=== PATIENT | male | born 1935 | race Caucasian/White ===

== ENCOUNTER 2018-11-26 15:46 | Emergency (ER) | payer MEDICARE, MEDICAID ==
--- NOTE | 2018-11-26 16:14 | Emergency Department Record ---
History of Present Illness - General Chief Complaint: Fall Injury Stated Complaint: 3 DAYS FALL/HEADACHES Time Seen by Provider: 11/26/18 16:06 Source: Patient Mode of Arrival: Uses walker Limitations: No limitations - History of Present Illness Initial Comments: 83 yo male presents after a fall three days ago at his home. He fell back entering his home and hit the back of his head. No LOC. No other injuries or pain. He reports a headache since that time. No dizziness. No syncope. He has been back to his baseline of using a walker at home since the fall. No vision changes. No confusion. No nausea or vomiting. No new joint pains or back pain. No chest pain. He called his PCP today due to the headache since the fall and was sent to the ED. Complaint: Fall Onset/Timin -: Days(s) Fall From: Standing When Fall Occurred: # Days [employer] Fall Witnessed: No Place Fall Occurred: Home Loss of Consciousness: None Prolonged Down Time?: No Symptoms Prior to Fall: None Location: Head Severity: Mild Severity scale (1-10): 3 Quality: Aching Context: Tripped/slipped Associated Symptoms: Denies - [place] Coma Scale Eye Response: (4) Open spontaneously Motor Response: (6) Obeys commands Verbal Response: (5) Oriented Trail Total: 15 - Related Data Allergies Allergy/AdvReac Type Severity Reaction Status Date / Time amoxicillin Allergy RASH Verified 11/26/18 15:56 Penicillins Allergy RASH Verified 11/26/18 15:56 Sulfa (Sulfonamide Allergy NAUSEA AND Verified 11/26/18 15:56 Antibiotics) VOMITING Travel Screening - Travel/Exposure Within Last 30 Days Have you traveled within the last 30 days?: No - Travel/Exposure Within Last Year Have you traveled outside the [place] in the last year?: No - Additonal Travel Details Have you been exposed to anyone with a communicable illness?: No - Travel Symptoms Symptom Screening: None Review of Systems Constitutional: Denies: Chills, Fever, Malaise, Weakness Eyes: Denies: Eye discharge, Eye pain, Photophobia, Vision change ENT: Denies: Congestion, Throat pain Respiratory: Denies: Cough, Dyspnea Cardiovascular: Denies: Chest pain, Palpitations, Syncope Endocrine: Denies: Fatigue, Polydipsia, Polyuria Gastrointestinal: Denies: Abdominal pain, Diarrhea, Nausea, Vomiting Genitourinary: Denies: Dysuria, Frequency, Hematuria Musculoskeletal: Denies: Arthralgia, Back pain, Joint swelling, Myalgia, Neck pain Skin: Denies: Bruising, Change in color, Rash Neurological: Reports: Headache. Denies: Numbness, Vertigo, Weakness Psychiatric: Denies: Anxiety Hematological/Lymphatic: Denies: Easy bleeding, Easy bruising Past Medical History - SOCIAL HISTORY Smoking Status: Never smoker Alcohol Use: None Drug Use: None - RESPIRATORY Hx Respiratory Disorders: No - CARDIOVASCULAR Hx Cardio Disorders: Yes Hx Hypertension: Yes - NEURO Hx Neuro Disorders: No - GI Hx GI Disorders: No - Hx Genitourinary Disorders: Yes Hx Prostate Problems: Yes - ENDOCRINE Hx Endocrine Disorders: Yes Hx Diabetes: Yes Hx Thyroid Disease: Yes - MUSCULOSKELETAL Hx Musculoskeletal Disorders: Yes Hx Arthritis: Yes - PSYCH Hx Psych Problems: No - HEMATOLOGY/ONCOLOGY Hx Hematology/Oncology Disorders: No Family Medical History Any Significant Family History?: No Physical Exam - General General Appearance: Alert, Oriented x3, Cooperative, No acute distress Limitations: No limitations - Head Head exam: Atraumatic, Normocephalic, Normal inspection Head exam detail: Other. negative: Abrasion, Contusion, Hematoma, Laceration - Eye Eye exam: Normal appearance, PERRL, EOMI. negative: Conjunctival injection, Scleral icterus - ENT ENT exam: Normal exam, Mucous membranes moist, Normal orophraynx Ear exam: Normal external inspection Nasal Exam: Normal inspection Mouth exam: Normal external inspection Teeth exam: Normal inspection Throat exam: Normal inspection - Neck Neck exam: Normal inspection, Full ROM. negative: Tenderness - Respiratory Respiratory exam: Normal lung sounds bilaterally, Other (No pain with deep inspiration). negative: Accessory muscle use, Chest wall tenderness, Decreased breath sounds, Prolonged expiratory, Respiratory distress, Rhonchi, Stridor, Wheezes - Cardiovascular Cardiovascular Exam: Regular rate, Normal rhythm, Normal heart sounds - GI/Abdominal GI/Abdominal exam: Soft. negative: Distended, Guarding, Rebound, Rigid, Tenderness - Rectal Rectal exam: Deferred - exam: Deferred - Extremities Extremities exam: Normal inspection, Full ROM, Pedal edema (chronic edema per the patient). negative: Tenderness Image of Full Body: 1 - 4cm bruise, non tender 2 - few scattered bruises, non tender, clear lungs - Back Back exam: Reports: Normal inspection. Denies: CVA tenderness (R), CVA tenderness (L) - Neurological Neurological exam: Alert, Oriented X3 - Psychiatric Psychiatric exam: Normal affect, Normal mood. negative: Agitated, Anxious - Skin Skin exam: Dry, Intact, Normal color, Warm Course Vital Signs 11/26/18 16:00 Temperature 99.1 F Pulse Rate 88 Respiratory 20 Rate Blood Pressure 174/83 Pulse Ox 97 - Reevaluation(s) Reevaluation #1: 83 yo male, well appearing with persistent headache without other symptoms since a fall 3 days ago. Head and Cervical CT ordered 11/26/18 16:20 The patient is doing well and eager for DC. 11/26/18 16:57 The HCT is negative for acute process or injury. Ventriculomegaly noted slightly progressed since the previous in 2011 likely progression or atrophy. 11/26/18 17:[address] scan was negative for any acute process. Multi level degen erative changes noted. The results were discussed with the patient. We discussed close follow up with the PCP for a recheck of his symptoms after the fall. Disposition Disposition: Discharge Clinical Impression: Headache Qualifiers: Headache type: unspecified Headache chronicity pattern: unspecified pattern Intractability: not intractable Qualified Code(s): R51 - Headache Head contusion Qualifiers: Encounter type: initial encounter Contusion of head detail: unspecified part of head Qualified Code(s): S00.93XA - Contusion of unspecified part of head, initial encounter Disposition: Home, Self-Care Condition: (1) Good Instructions: Fall Prevention for Older Adults (ED) Additional Instructions: Call your doctor for the next available follow up appointment to recheck your headache Review this ER visit and the tests performed with your family doctor Return to the ER for a recheck if worse, any new concerns or questions Take Tylenol as needed for mild headache pain Forms: Patient Portal Access Time of Disposition: 16:59 Quality - Quality Measures Quality Measures: N/A, Blunt Head Trauma (>2yr) - Erika Coma Scale Eye Response: (4) Open spontaneously Motor Response: (6) Obeys commands Verbal Response: (5) Oriented Trail Total: 15 - Blunt Head Trauma - Adult Quality Measure: Measure #415: Utilization of CT for Minor Blunt Head Trauma ICD10 Codes Entered: Yes Was CT ordered: Yes Does Patient Have Any of the Following: Taking Antiplatelet Med Trail Score: [address] for Minor Blunt Head Trauma: Patient Excluded [G9531] Additional Inclusion Criteria: More than 24hrs (OR) GCS not 15 (OR) CT not ordered. - Blood Pressure Screening Does Patient Have Any of the Following: Active Dx of HTN Blood Pressure Classification: Pre-Hypertensive BP Reading Systolic Measurement: 174 Diastolic Measurement: 83 Screening for High Blood Pressure: Patient Exclusion, Hx of HTN [G9744]
--- NOTE | 2018-11-28 10:24 | CT SCAN REPORT ---
EXAM: CT OF THE BRAIN WITHOUT CONTRAST HISTORY: FALL THREE NIGHTS AGO HITTING BACK OF HEAD. DULL HEADACHE. TECHNIQUE: Routine noncontrast CT examination of the brain was obtained. Comparison: CT of the brain without contrast dated 11/09/11. FINDINGS: There is mild to moderate dilatation of the ventricles, slightly more pronounced since 2011. There is dilatation of the subarachnoid spaces consistent with atrophy. Moderate diffuse periventricular and subcortical white matter lucencies are scattered in each cerebral hemisphere symmetrically. These are unchanged or mildly worsened in the interval. They are nonspecific, but likely areas of chronic microvascular ischemia. No definite new area of abnormally increased or decreased attenuation is noted throughout the brain substance. No abnormal extraaxial fluid collection is seen. No skull fracture is identified. The visualized paranasal sinuses and mastoid air cells are clear. The orbits as visualized are unremarkable. IMPRESSION: 1. NO CT EVIDENCE OF ACUTE MAJOR VESSEL INFARCT, INTRACRANIAL HEMORRHAGE, MASS, NOR SKULL FRACTURE. 2. GENERALIZED ATROPHY WITH VENTRICULOMEGALY. THE VENTRICULOMEGALY APPEARS MILDLY MORE PRONOUNCED COMPARED TO THE PRIOR EXAMINATION LIKELY RELATING TO PROGRESSION OF ATROPHY WITH NORMAL PRESSURE HYDROCEPHALUS LESS LIKELY. 3. DIFFUSE WHITE MATTER LUCENCIES SCATTERED IN EACH CEREBRAL HEMISPHERE SYMMETRICALLY CONSISTENT WITH MICROVASCULAR ISCHEMIA. JOB NUMBER: [id number] [facility]
--- NOTE | 2018-11-28 10:43 | CT SCAN REPORT ---
EXAM: CT OF THE CERVICAL SPINE WITHOUT CONTRAST HISTORY: FALL THREE NIGHTS AGO HITTING BACK OF HEAD. DULL HEADACHE SINCE. TECHNIQUE: Thin collimation helical CT examination of the cervical spine was performed without intravenous contrast. Coronal and sagittal reformatted images are generated and reviewed. Comparison: No prior imaging of the cervical spine available for comparison. Same day noncontrast CT of the brain. FINDINGS: Diffuse osteopenia mildly limits evaluation. There is straightening of the normal cervical lordosis likely due to positioning or muscle spasm. There is minimal anterolisthesis of C2 on C3 likely relating to facet arthropathy which is advanced on the left. The vertebral bodies are otherwise normal in alignment and height. No convincing acute fracture, destructive bone lesion or prevertebral soft tissue swelling. There are moderate hypertrophic degenerative changes of the atlantodental joint. There is near complete obliteration of the C3-C4 disk space with fusion of C3 and C4 vertebral bodies and right facet joint. Mild degenerative disk/degenerative end plate changes are scattered throughout the remainder of the cervical spine. No gross osseous cervical spinal stenosis is seen. Multilevel bilateral facet arthropathy is present most pronounced at the upper levels, severe on the left at the C2-C3 level. Multilevel bilateral neural foraminal narrowing is present most pronounced at the upper levels due to facet arthropathy. No cervical mass nor adenopathy is seen. IMPRESSION: 1. DIFFUSE OSTEOPENIA LIMITS EVALUATION. 2. NO ACUTE FRACTURE, SUSPICIOUS SUBLUXATION OR PREVERTEBRAL SOFT TISSUE SWELLING. 3. MULTILEVEL DEGENERATIVE CHANGES, DISCUSSED ABOVE. MINIMAL ANTEROLISTHESIS OF C2 ON C3 SECONDARY TO FACET ARTHROPATHY. JOB NUMBER: [id number] [facility]
== END 2018-11-26 17:36 | disposition home or self-care (01) ==
LOC: ER 15:46
DX: S00.93XA Contusion of unspecified part of head, initial encounter (principal); S20.222A Contusion of left back wall of thorax, initial encounter; S20.221A Contusion of right back wall of thorax, initial encounter; R51 Headache; R60.0 Localized edema; E11.9 Type 2 diabetes mellitus without complications; I10 Essential (primary) hypertension; W01.10XA Fall on same level from slipping, tripping and stumbling with subsequent striking against unspecified object, initial encounter; Y92.009 Unspecified place in unspecified non-institutional (private) residence as the place of occurrence of the external cause
CPT/HCPCS: 70450; 72125; 99283; 99284

== ENCOUNTER 2018-11-30 12:57 | Emergency (ER) | payer MEDICARE, MEDICAID ==
[2018-11-30 13:43] LABS: ABSOLUTE NEUTROPHIL COUNT 4.43; BASO % 0.2 % (0-6); EOS % 1.2 % (0-6); GRAN % 77.5 % (47-80); HEMATOCRIT 40.2 % (42.0-52.0); HEMOGLOBIN 13.1 gm/dl (14.0-18.0); LYMPH % 13.8 % (16-45); MEAN CELL VOLUME 93.7 fl (81-97); MEAN CORPUSCULAR HEMOGLOBIN 30.5 pg (27-33); MEAN CORPUSCULAR HGB CONC 32.6 g/dl (32-36); MEAN PLATELET VOLUME 9.6 fl (7.4-10.4); MONO % 7.3 % (0-9); PLATELET COUNT 158 K/uL (130-400); RED BLOOD COUNT 4.29 M/uL (4.40-5.70); RED CELL DISTRIBUTION WIDTH 14.7 % (11.5-14.5); URINE APPEARANCE CLEAR; URINE BILIRUBIN NEGATIVE (NEGATIVE); URINE BLOOD TRACE-I (NEGATIVE); URINE COLOR YELLOW; URINE GLUCOSE (UA) NEGATIVE (NEGATIVE); URINE KETONE TRACE (NEGATIVE); URINE LEUKOCYTE ESTERASE NEGATIVE (NEGATIVE); URINE NITRITE NEGATIVE (NEGATIVE); URINE UROBILINOGEN 0.2 E.U./dL (0.20 - 1.00); WHITE BLOOD COUNT W/O DIFF 5.7 K/uL (4.2-12.2)
[2018-11-30 13:54] LABS: BLOOD UREA NITROGEN 13 mg/dL (8-23); CREATININE 0.8 mg/dL (0.7-1.2); EST GLOMERULAR FILTRATION RATE > 60 mL/min; TOTAL PROTEIN 6.5 g/dL (6.6-8.7)
[2018-11-30 13:56] LABS: GLUCOSE,RANDOM 220 mg/dL (74-109)
[2018-11-30 13:59] LABS: ALB/GLOB RATIO 1.5 (1.1-1.8); ALBUMIN 3.9 g/dL (4.0-5.0); ALKALINE PHOSPHATASE 84 U/L (40-129); ALT/SGPT 17 U/L (<41); AST/SGOT 21 U/L (10.0-50.0); CREATINE PHOSPHOKINASE 63 U/L (39-308); URINE EPITHELIAL CELLS 0 - 2 (FEW); URINE RBC 0 - 2 (NONE SEEN); URINE WBC 0 - 2 (0-2/hpf)
[2018-11-30] MEDS ORDERED: POTASSIUM CHLORIDE 20 MEQ TABLET PO ONE (14:26)
--- NOTE | 2018-11-30 15:13 | Emergency Department Record ---
History of Present Illness - General Chief complaint: Weakness Stated complaint: FALL Time Seen by Provider: 11/30/18 13:28 Source: Patient, EMS Mode of Arrival: EMS Limitations: No limitations - History of Present Illness Initial comments: pt was brought in by ems because his legs gave out while he was in the parking lot of a store. he denies falling. he states he slid to the ground and did not hurt himself. he was here 3 days ago for falling and had a neg head ct at that time MD Complaint: Generalized weakness Onset/Timin -: Hour(s) Location: LLE, RLE Severity: Moderate Consistency: Constant Associated Symptoms: Denies other symptoms - [place] Coma Scale Eye Response: (4) Open spontaneously Motor Response: (6) Obeys commands Verbal Response: (5) Oriented [place] Total: 15 - Related Data Allergies Allergy/AdvReac Type Severity Reaction Status Date / Time amoxicillin Allergy RASH Verified 11/30/18 13:00 Penicillins Allergy RASH Verified 11/30/18 13:00 Sulfa (Sulfonamide Allergy NAUSEA AND Verified 11/30/18 13:00 Antibiotics) VOMITING Travel Screening - Travel/Exposure Within Last 30 Days Have you traveled within the last 30 days?: No - Travel/Exposure Within Last Year Have you traveled outside the [place] in the last year?: No - Additonal Travel Details Have you been exposed to anyone with a communicable illness?: No - Travel Symptoms Symptom Screening: None Review of Systems Reviewed: No additional complaints except as noted below Constitutional: Reports: As per HPI. Denies: Chills, Fever, Malaise, Night sweats, Weakness, Weight change Eyes: Reports: As per HPI. Denies: Eye discharge, Eye pain, Photophobia, Vision change ENT: Reports: As per HPI. Denies: Congestion, Dental pain, Ear pain, Epistaxis, Hearing loss, Throat pain Respiratory: Reports: As per HPI. Denies: Cough, Dyspnea, Hemoptysis, Stridor, Wheezes Cardiovascular: Reports: As per HPI. Denies: Arrhythmia, Chest pain, Dyspnea on exertion, Edema, Murmurs, Orthopnea, Palpitations, Paroxysmal nocturnal dyspnea, Rheumatic Fever, Syncope Endocrine: Reports: As per HPI. Denies: Fatigue, Heat or cold intolerance, Polydipsia, Polyuria Gastrointestinal: Reports: As per HPI. Denies: Abdominal pain, Constipation, Diarrhea, Hematemesis, Hematochezia, Melena, Nausea, Vomiting Genitourinary: Reports: As per HPI. Denies: Dysuria, Frequency, Hematuria, Incontinence, Retention, Testicular pain, Testicular mass, Urgency Musculoskeletal: Reports: As per HPI. Denies: Arthralgia, Back pain, Gout, Joint swelling, Myalgia, Neck pain Skin: Reports: As per HPI. Denies: Bruising, Change in color, Change in hair/nails, Lesions, Pruritus, Rash Neurological: Reports: As per HPI. Denies: Abnormal gait, Confusion, Headache, Numbness, Paresthesias, Seizure, Tingling, Tremors, Vertigo, Weakness Psychiatric: Reports: As per HPI. Denies: Anxiety, Auditory hallucinations, Depression, Homicidal thoughts, Suicidal thoughts, Visual hallucinations Hematological/Lymphatic: Reports: As per HPI. Denies: Anemia, Blood Clots, Easy bleeding, Easy bruising, Swollen glands Past Medical History - SOCIAL HISTORY Smoking Status: Never smoker Alcohol Use: None Drug Use: None - RESPIRATORY Hx Respiratory Disorders: No - CARDIOVASCULAR Hx Cardio Disorders: Yes Hx Hypertension: Yes - NEURO Hx Neuro Disorders: No - GI Hx GI Disorders: No - Hx Genitourinary Disorders: Yes Hx Prostate Problems: Yes - ENDOCRINE Hx Endocrine Disorders: Yes Hx Diabetes: Yes Hx Thyroid Disease: Yes - MUSCULOSKELETAL Hx Musculoskeletal Disorders: Yes Hx Arthritis: Yes - PSYCH Hx Psych Problems: No - HEMATOLOGY/ONCOLOGY Hx Hematology/Oncology Disorders: No Family Medical History Any Significant Family History?: No Physical Exam - General General Appearance: Alert, Oriented x3, Cooperative, Mild distress - Head Head exam: Normal inspection - Eye Eye exam: Normal appearance, PERRL, EOMI Pupils: Normal accommodation - ENT ENT exam: Normal exam, Mucous membranes moist, Normal external ear exam, Normal orophraynx Ear exam: Normal external inspection. negative: External canal tenderness Nasal Exam: Normal inspection. negative: Discharge, Sinus tenderness Mouth exam: Normal external inspection, Tongue normal Teeth exam: Normal inspection. negative: Dental caries Throat exam: Normal inspection. negative: Tonsillar erythema, Tonsillar exudate - Neck Neck exam: Normal inspection, Full ROM. negative: Tenderness - Respiratory Respiratory exam: Normal lung sounds bilaterally. negative: Respiratory distress - Cardiovascular Cardiovascular Exam: Regular rate, Normal rhythm, Normal heart sounds - GI/Abdominal GI/Abdominal exam: Soft, Normal bowel sounds. negative: Tenderness - Rectal Rectal exam: Deferred - exam: Deferred - Extremities Extremities exam: Normal inspection, Full ROM, Normal capillary refill. negative: Tenderness - Back Back exam: Reports: Normal inspection, Full ROM. Denies: Muscle spasm, Rash noted, Tenderness - Neurological Neurological exam: Alert, CN II-XII intact, Normal gait, Oriented X3 - Psychiatric Psychiatric exam: Normal affect, Normal mood - Skin Skin exam: Dry, Intact, Normal color, Warm Course Vital Signs 11/30/18 11/30/18 13:02 13:55 Temperature 98.6 F Pulse Rate 95 H Pulse Rate [ 86 Pulse Ox Probe] Respiratory 18 18 Rate Blood Pressure 145/76 Blood Pressure 157/72 [Left Arm] Pulse Ox 92 L 94 L - Reevaluation(s) Reevaluation #1: 11/30/18 15:14 i attempted to admit pt but he refuses admission Medical Decision Making - Lab Data Result diagrams: 11/30/18 13:05 11/30/18 13:05 Lab Results 11/30/18 11/30/18 11/30/18 Range/Units 13:05 13:05 13:05 WBC 5.7 (4.2-12.2) K/uL RBC 4.29 L (4.40-5.70) M/uL Hgb 13.1 L (14.0-18.0) gm/dl Hct 40.2 L (42.0-52.0) % MCV 93.7 (81-97) fl MCH 30.5 (27-33) pg MCHC 32.6 (32-36) g/dl RDW 14.7 H (11.5-14.5) % Plt Count 158 (130-400) K/uL MPV 9.6 (7.4-10.4) fl Gran % 77.5 (47-80) % Lymphocytes % 13.8 L (16-45) % Monocytes % 7.3 (0-9) % Eosinophils % 1.2 (0-6) % Basophils % 0.2 (0-6) % Absolute Neutrophils 4.43 Sodium 139 (136-145) mmol/L Potassium 3.2 L (3.4-4.5) mmol/L Chloride 97 L (98-107) mmol/L Carbon Dioxide 24.0 (22-29) mmol/L Anion Gap 18.0 H (7-16) BUN 13 (8-23) mg/dL Creatinine 0.8 (0.7-1.2) mg/dL Estimated GFR > 60 mL/min Random Glucose 220 H (74-109) mg/dL Calcium 8.9 (8.8-10.2) mg/dL Total Bilirubin 1.10 H (0.2-1.0) mg/dL AST 21 (10.0-50.0) U/L ALT 17 (<41) U/L Alkaline Phosphatase 84 (40-129) U/L Creatine Kinase 63 (39-308) U/L Total Protein 6.5 L (6.6-8.7) g/dL Albumin 3.9 L (4.0-5.0) g/dL Globulin 2.6 (1.4-4.8) gm/dL Albumin/Globulin Ratio 1.5 (1.1-1.8) TSH 3.30 (0.270-4.20) uIU/mL Urine Color Yellow Urine Appearance Clear Urine pH 6.0 (5.0-8.0) Ur Specific [place] 1.025 (1.002-1.030) Urine Protein 100 mg/dl H (NEGATIVE) Urine Glucose (UA) Negative (NEGATIVE) Urine Ketones Trace H (NEGATIVE) Urine Blood Trace-i (NEGATIVE) Urine Nitrite Negative (NEGATIVE) Urine Bilirubin Negative (NEGATIVE) Urine Urobilinogen 0.2 (0.20 - 1.00) E.U./dL Ur Leukocyte Esterase Negative (NEGATIVE) Urine RBC 0 - 2 (NONE SEEN) Urine WBC 0 - 2 (0-2/hpf) Ur Epithelial Cells 0 - 2 (FEW) Disposition Disposition: Other Clinical Impression: Severe muscle deconditioning, Hypokalemia Disposition: Against Medical Advice Condition: (1) Good Instructions: Weakness (ED), Fall Prevention for Older Adults (ED) Additional Instructions: follow up with dr villagran sunday. return sooner if worse. may return at any time. use walker Quality - Quality Measures Quality Measures: N/A - Blood Pressure Screening Does Patient Have Any of the Following: Active Dx of HTN Blood Pressure Classification: Hypertensive Reading Systolic Measurement: 145 Diastolic Measurement: 76 Screening for High Blood Pressure: Patient Exclusion, Hx of HTN [G9744]
== END 2018-11-30 16:38 | disposition left against medical advice (07) ==
LOC: ER 12:57
DX: M62.81 Muscle weakness (generalized) (principal); E87.6 Hypokalemia; E11.9 Type 2 diabetes mellitus without complications; I10 Essential (primary) hypertension; Z87.891 Personal history of nicotine dependence; Z91.81 History of falling
CPT/HCPCS: 80053; 81001; 82550; 84443; 85025; 99283; 99284

== ENCOUNTER 2019-03-04 08:19 | Inpatient (IN) | payer MEDICARE, MEDICAID ==
[2019-03-04] MEDS ORDERED: ASPIRIN 81 MG CHEWABLE TABLET PO ONE (08:26)
--- NOTE | 2019-03-04 08:32 | Emergency Department Record ---
History of Present Illness - General Chief Complaint: Chest Pain Stated Complaint: CHEST DISCOMFORT Time Seen by Provider: 03/04/19 08:21 Source: Patient Mode of Arrival: Ambulatory Limitations: No limitations - History of Present Illness Initial Comments: 83 yo male presents not feeling well since yesterday. He has had some vague discomfort in his chest on and off. He has had a feeling of being a little short of breath as well. No cough. No current chest pain. He denies a history of CAD. He does have chronic leg edema that he thinks is close to his normal. He does get short of breath with activity. No back pain that is new. No abdominal pain. He has had some upset stomach recently with eating. Dr Brian is his PCP. No cough. No fever. Patient lives alone with family local. MD Complaint: Chest pain, Other (short of breath) -: Days(s) (2) Onset: During rest Pain Location: Substernal Pain Radiation: None Severity: Mild Quality: Other Consistency: Intermittent Improves With: Nothing Worsens With: Exertion Context: Other Anginal Symptoms: Dyspnea Treatments Prior to Arrival: None - Related Data Allergies Allergy/AdvReac Type Severity Reaction Status Date / Time amoxicillin Allergy RASH Verified 11/30/18 13:00 Penicillins Allergy RASH Verified 11/30/18 13:00 Sulfa (Sulfonamide Allergy NAUSEA AND Verified 11/30/18 13:00 Antibiotics) VOMITING Review of Systems Constitutional: Reports: Weakness. Denies: Chills, Fever, Malaise Eyes: Denies: Eye discharge ENT: Denies: Congestion, Throat pain Respiratory: Reports: Dyspnea. Denies: Cough, Hemoptysis, Stridor, Wheezes Cardiovascular: Reports: Chest pain, Dyspnea on exertion, Edema. Denies: Palpitations, Paroxysmal nocturnal dyspnea, Syncope Endocrine: Reports: Fatigue Gastrointestinal: Denies: Abdominal pain, Diarrhea, Nausea, Vomiting Genitourinary: Denies: Dysuria, Frequency, Hematuria Musculoskeletal: Denies: Arthralgia, Back pain, Myalgia Skin: Denies: Bruising, Change in color, Rash Neurological: Denies: Confusion, Headache Psychiatric: Denies: Anxiety Hematological/Lymphatic: Denies: Easy bleeding, Easy bruising Past Medical History - SOCIAL HISTORY Smoking Status: Never smoker Drug Use: None - RESPIRATORY Hx Respiratory Disorders: No - CARDIOVASCULAR Hx Cardio Disorders: Yes Hx Hypertension: Yes - NEURO Hx Neuro Disorders: No - GI Hx GI Disorders: No - Hx Genitourinary Disorders: Yes Hx Prostate Problems: Yes - ENDOCRINE Hx Endocrine Disorders: Yes Hx Diabetes: Yes Hx Thyroid Disease: Yes - MUSCULOSKELETAL Hx Musculoskeletal Disorders: Yes Hx Arthritis: Yes - PSYCH Hx Psych Problems: No - HEMATOLOGY/ONCOLOGY Hx Hematology/Oncology Disorders: No Physical Exam - General General Appearance: Alert, Oriented x3, Cooperative, No acute distress Limitations: No limitations - Head Head exam: Atraumatic, Normal inspection - Eye Eye exam: Normal appearance, PERRL. negative: Conjunctival injection, Scleral icterus - ENT ENT exam: Normal exam, Mucous membranes moist Ear exam: Normal external inspection Nasal Exam: Normal inspection Mouth exam: Normal external inspection - Neck Neck exam: Normal inspection - Respiratory Respiratory exam: Normal lung sounds bilaterally. negative: Respiratory distress - Cardiovascular Cardiovascular Exam: Regular rate, Normal rhythm, Normal heart sounds Peripheral Pulses: 2+: Radial (R), Radial (L) - GI/Abdominal GI/Abdominal exam: Soft. negative: Tenderness - Rectal Rectal exam: Deferred - exam: Deferred - Extremities Extremities exam: Full ROM, Pedal edema. negative: Normal inspection, Tenderness - Back Back exam: Denies: CVA tenderness (R), CVA tenderness (L) - Neurological Neurological exam: Alert, Oriented X3 - Psychiatric Psychiatric exam: Normal affect, Normal mood - Skin Skin exam: Dry, Intact, Normal color, Warm Course - Reevaluation(s) Reevaluation #1: EKG #1: 08:19 Rate: 86 Rhythm: sinus with apc [place]: normal Intervals: normal ST segments: normal Prior: none 03/04/19 08:31 03/04/19 09:06 The labs were reviewed No acute changes on the CBC Mild increase in the glucose on the CMP The Troponin is normal 03/04/19 09:22 The case was discussed with Dr Walter The patient will be admitted for serial cardiac enzymes, ECHO and consultation with cardiology tomorrow 03/04/19 10:17 The CXR was negative for acute process Medical Decision Making - Lab Data Result diagrams: 03/04/19 08:36 03/04/19 08:36 Disposition Disposition: Admit Clinical Impression: Chest pain Qualifiers: Chest pain type: unspecified Qualified Code(s): R07.9 - Chest pain, unspecified Dyspnea Qualifiers: Dyspnea type: unspecified Qualified Code(s): R06.00 - Dyspnea, unspecified Disposition: Still a Patient at [facility] Decision to Admit: Admit from ER Decision to Admit Date: 03/04/19 Decision to Admit Time: : Condition: (1) Good Forms: Patient Portal Access Time of Disposition: : Quality - Quality Measures Quality Measures: N/A - Blood Pressure Screening Does Patient Have Any of the Following: Active Dx of HTN Blood Pressure Classification: Pre-Hypertensive BP Reading Systolic Measurement: 134 Diastolic Measurement: 83 Screening for High Blood Pressure: Patient Exclusion, Hx of HTN [G9744]
[2019-03-04 08:45] LABS: ABSOLUTE NEUTROPHIL COUNT 4.15; BASO % 0.2 % (0-6); EOS % 2.7 % (0-6); GRAN % 69.5 % (47-80); HEMATOCRIT 42.4 % (42.0-52.0); HEMOGLOBIN 13.8 gm/dl (14.0-18.0); LYMPH % 21.9 % (16-45); MEAN CELL VOLUME 95.1 fl (81-97); MEAN CORPUSCULAR HEMOGLOBIN 30.9 pg (27-33); MEAN CORPUSCULAR HGB CONC 32.5 g/dl (32-36); MEAN PLATELET VOLUME 9.5 fl (7.4-10.4); MONO % 5.7 % (0-9); PLATELET COUNT 147 K/uL (130-400); RED BLOOD COUNT 4.46 M/uL (4.40-5.70); RED CELL DISTRIBUTION WIDTH 16.1 % (11.5-14.5)
[2019-03-04 08:55] LABS: BLOOD UREA NITROGEN 8 mg/dL (8-23); CREATININE 0.6 mg/dL (0.7-1.2); EST GLOMERULAR FILTRATION RATE > 60 mL/min
[2019-03-04 08:57] LABS: INR 1.1; PARTIAL THROMBOPLASTIN TIME 23.1 SECONDS (24.5-39.1); PROTHROMBIN TIME (PATIENT) 11.7 SECONDS (9.5-12.1)
[2019-03-04 08:58] LABS: GLUCOSE,RANDOM 211 mg/dL (74-109)
[2019-03-04 09:00] LABS: ALB/GLOB RATIO 1.3 (1.1-1.8); ALKALINE PHOSPHATASE 88 U/L (40-129); ALT/SGPT 19 U/L (<41); AST/SGOT 28 U/L (10.0-50.0)
[2019-03-04] MEDS ORDERED: FLU VAC QS 2019-20 (INPT, 6MO+) 60MCG/0.5ML IM ONE (11:13)
[2019-03-04] MEDS: ASPIRIN 325 MG TAB ENTERIC-COATED PO SCH (11:42)
[2019-03-04 16:19] LABS: URINE APPEARANCE CLEAR; URINE BILIRUBIN NEGATIVE (NEGATIVE); URINE BLOOD TRACE-I (NEGATIVE); URINE COLOR YELLOW; URINE GLUCOSE (UA) NEGATIVE (NEGATIVE); URINE KETONE NEGATIVE (NEGATIVE); URINE LEUKOCYTE ESTERASE NEGATIVE (NEGATIVE); URINE NITRITE NEGATIVE (NEGATIVE); URINE PROTEIN NEGATIVE (NEGATIVE); URINE UROBILINOGEN 0.2 E.U./dL (0.20 - 1.00)
[2019-03-04 16:28] LABS: URINE EPITHELIAL CELLS NONE SEEN (FEW); URINE RBC 0 - 2 (NONE SEEN); URINE WBC NONE SEEN (0-2/hpf)
[2019-03-04] MEDS: METFORMIN 500 MG TABLET PO SCH (17:22)
[2019-03-04] MEDS: ATORVASTATIN 20 MG TABLET PO SCH (17:22)
[2019-03-04] MEDS ORDERED: TAMSULOSIN HCL 0.4 MG CAP.ER.24H PO SCH (22:00)
[2019-03-04] MEDS: ENOXAPARIN 40 MG/0.4 ML SYR SQ SCH (22:44)
[2019-03-05] MEDS ORDERED: LEVOTHYROXINE SODIUM 75 MCG TABLET PO SCH (07:00)
[2019-03-05] MEDS ORDERED: FELODIPINE 5 MG PO SCH (07:00)
--- NOTE | 2019-03-05 07:26 | RADIOLOGY REPORT ---
EXAM: CHEST, TWO VIEWS HISTORY: CHEST PAIN WITH SOME DIFFICULTY IN BREATHING FOR THREE DAYS. WEAKNESS. BILATERAL LEG EDEMA. TECHNIQUE: Upright PA and lateral views of the chest were obtained. Comparison: None. FINDINGS: The heart is not enlarged. No pulmonary venous hypertension is seen. The thoracic aorta is mildly tortuous and atherosclerotic. A calcified granuloma is present within the lateral mid to lower left lung measuring 7 mm in diameter. Calcified lymph nodes are noted in the AP window of the mediastinum also consistent with healed granulomatous disease. A normal variant azygos fissure and lobe is present. no lung consolidation, costophrenic angle blunting or pneumothorax is seen. No acute osseous abnormality. There are degenerative changes scattered within the visualized spine and shoulder girdles. Degenerative changes of the glenohumeral joint are moderate to advanced. IMPRESSION: 1. NO DEFINITE RADIOGRAPHIC EVIDENCE OF ACUTE CARDIOPULMONARY DISEASE. 2. 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 JOB NUMBER: [id number] MTDD
[2019-03-05] MEDS ORDERED: GLIMEPIRIDE 2 MG TABLET PO SCH (08:00)
[2019-03-05] MEDS: ASPIRIN 325 MG TAB ENTERIC-COATED PO SCH (09:05)
[2019-03-05] MEDS: METFORMIN 500 MG TABLET PO SCH (09:06)
[2019-03-05] MEDS: ENOXAPARIN 40 MG/0.4 ML SYR SQ SCH (09:06)
[2019-03-05] MEDS: ATORVASTATIN 20 MG TABLET PO SCH (14:33)
[2019-03-05] MEDS ORDERED: ACETAMINOPHEN 500 MG TABLET PO PRN (14:34)
--- NOTE | 2019-03-05 14:40 | History and Physical Report ---
CHIEF COMPLAINT: Nonspecific chest pain which was gone in the emergency department. Stated it was on and off for the last 2 days. He has had some edema in the legs and he said he thinks he ate something that bothered his stomach. In the emergency department, seen by Dr. Barba. He said the pain was gone but he wanted to keep him for serial cardiac enzymes and further evaluation by Cardiology. He has some risk factors of age, diabetes, and hypertension. Chest x-ray did not show any pulmonary congestion or cardiomegaly. EKG with normal sinus rhythm, no acute changes. Cardiac enzymes x2 at this point are negative. PAST MEDICAL HISTORY: Diabetes mellitus type 2, hypothyroidism, arthritis, hypercholesterolemia, benign prostatic hyperplasia, frequent urination. MEDICATIONS: 1. Metformin 1000 mg b.i.d. 2. Levothyroxine 75 mcg daily. 3. Amaryl 3 mg once a day in the morning. 4. Plendil extended release 5 mg daily. 5. Lipitor 10 mg daily. 6. Aspirin 81 mg daily. 7. Flomax 0.4 mg daily. ALLERGIES: AMOXICILLIN, PENICILLIN, SULFA. FAMILY/PSYCHOSOCIAL HISTORY: Father and mother had heart disease. Never smoked. No alcohol or drug use. REVIEW OF SYSTEMS: HEENT: No upper respiratory infection symptoms, cough, cold, or congestion. Cardiovascular: See Chief Complaint. He had some subtle epigastric discomfort, some edema in his legs, just felt uneasy. Respiratory: Slightly short of breath with exertion, may be his baseline. No smoking history. Gastrointestinal: No nausea, vomiting, diarrhea, black stools, or bloody stools. Genitourinary: No dysuria, hematuria, frequency, or burning on urination. Musculoskeletal: No joint or bone abnormalities. Neurological: No CVA, paralysis, or paresthesias. Endocrine: He has diabetes mellitus and hypothyroidism. Integument: No rash, ulcers, change in moles, or yellow skin. PHYSICAL EXAMINATION: VITALS: Height 5 feet 7 inches, weight 256 pounds on the standing scale. Temperature 97.7, pulse 68, blood pressure 160/69, respiratory rate 19, pulse ox 98% on room air. HEENT: Pupils are equal, round, and reactive to light and accommodation. Extraocular muscles are intact. Throat is clear. Nose is clear. Tympanic membranes are barber. NECK: Supple. No jugular venous distention. No hepatojugular reflux. No carotid bruits. Thyroid is smooth. CARDIOVASCULAR: Regular rate and rhythm without murmurs, clicks, rubs, or gallops. RESPIRATORY: Clear to auscultation and percussion. ABDOMEN: Soft, nontender. No hepatosplenomegaly, no masses, no tenderness. Bowel sounds are active. No bruits. EXTREMITIES: 1+ pedal edema, 2+ pedal edema. Peripheral pulses are good. BREASTS: Normal male breasts. RECTAL: Deferred. GENITALIA: Deferred. NEUROLOGIC: Cranial nerves II-XII intact. No gross defects. Sensation normal, strength normal. Deep tendon reflexes equal bilaterally with Babinski negative. He has a slight tremor. MENTAL STATUS: Alert and oriented x3. IMPRESSION: 1. Epigastric abdominal pain, possible atypical chest pain. 2. Gastroesophageal reflux disease. 3. Edema of the legs which is lymphedema. 4. Diabetes mellitus type 2. 5. Hypothyroidism. 6. Hypercholesterolemia. 7. Hypertension. PLAN: Serial cardiac enzymes. Cardiology consult. An echocardiogram has been done already but we will order one. SAI
--- NOTE | 2019-03-05 14:41 | Discharge Note ---
VTE H&P Assessment - Risk for VTE Risk for VTE: Yes Risk Level: Moderate Risk Assessment Date: 03/04/19 Risk Assessment Time: 19:00 VTE Orders Placed or Will Be Placed: Yes Discharge Medications - Discharge Medications Home Medications: Ambulatory Orders Aspirin [Adult Low Dose Aspirin EC] 81 mg PO DAILY 02/26/15 [Last Taken 03/04/19] Atorvastatin Calcium [Lipitor] 10 mg PO DAILY 02/26/15 [Last Taken 1 Day Ago ~03/03/19] Levothyroxine Sodium [Synthroid] 75 mcg PO DAILYAC 02/26/15 [Last Taken 03/04/19] Metformin HCl [Glucophage] 1,000 mg PO BIDWM 02/26/15 [Last Taken 03/04/19] Tamsulosin HCl [Flomax] 0.4 mg PO QHS 02/26/15 [Last Taken 1 Day Ago ~03/03/19] Felodipine [Felodipine ER] 5 mg PO DAILYAC 03/04/19 [Last Taken 03/04/19] Glimepiride [Amaryl] 3 mg PO DAILYWM 03/04/19 [Last Taken 03/04/19] Discharge Note - Date Date of Discharge Note: 03/05/19 Disposition: Home, Self-Care Condition: (1) Good Additional Instructions: follow up with Dr Hayes in 7 days follow up with cardiology in the next 2 weeks at [facility] specialty clinic for further evaluation go to physical therapy twice a week at [facility] to get stronger with gait Referrals: DANIELLA HAYSE, D.O. [Primary Care Provider] - Forms: Patient Portal Access Activity at Discharge: Increase Activity as Tolerated
--- NOTE | 2019-03-06 14:00 | Discharge Summary ---
DISCHARGE DIAGNOSES: 1. Epigastric abdominal pain. 2. Gastroesophageal reflux disease. 3. Atypical chest pain. 4. Edema of the legs which is lymphedema. 5. Diabetes mellitus type 2. 6. Hypothyroidism. 7. Hypercholesterolemia. 8. Hypertension. ATTENDING PHYSICIAN: David Walter DO REASON FOR HOSPITALIZATION: This 83-year-old male presented with nonspecific chest pain which was gone when he got to the emergency department. He stated it was on and off the last 2 days. He had some edema in his legs and he states he thinks he ate something that bothered his stomach. In the emergency department, seen by Dr. Barba. He said the pain was gone but Dr. Barba wanted him to stay for serial cardiac enzymes and further evaluation by Cardiology. He had some risk factors; age, diabetes, hypertension. Chest x-ray did not show any pulmonary congestion or cardiomegaly. EKG was normal sinus rhythm. No acute changes. Cardiac enzymes were negative x3. SIGNIFICANT FINDINGS: The patient had an echocardiogram which showed ejection fraction was normal. Cardiac enzymes were normal. Chest x-ray with no acute changes. WBC 6000, hemoglobin 13.8, potassium 3.5, BUN 8, creatinine 0.6, troponin negative x3, brain natriuretic peptide 156, urine negative. HOSPITAL COURSE: The patient was in the hospital as an observation patient. He was asymptomatic throughout the hospitalization. Seen by Dr. Gaffney. He felt it was safe to have him discharged with followup as an outpatient for further testing if necessary. The patient's primary doctor is Dr. Brian. I will have him follow up with Dr. Brian in 1 week. DISCHARGE INSTRUCTIONS: Continue his home medications. Metformin, levothyroxine, Amaryl, Plendil, Lipitor, aspirin, Flomax. Follow up with Dr. Brian in 1 week. Follow up with Cardiology in the next 2 weeks in the Specialty Clinic in [facility]. The patient is being set up for physical therapy twice a week at [facility] to get stronger with his gait. He told the social media content manager that he was weak at times and has a hard time walking. SAI
--- NOTE | 2019-03-07 08:30 | Medical Records Consult ---
HISTORY OF PRESENT ILLNESS: The patient is 83 years old who was seen for evaluation of chest pain. He presented to [facility] on 03/04/2019 with chest pain. He states that it was chest pressure on and off for the past 2 days prior to presentation. He believes it was due to indigestion since it occurred after a meal. He reports the chest pressure resolved on presentation. His medical history is significant for diabetes mellitus, hypertension, hyperlipidemia. He has no known history of coronary artery disease. He denies any history of tobacco use. He utilizes a cane for ambulation. He reports no significant chest pressure with activity. He reports no significant surgical history. MEDICATIONS: 1. Metformin 1000 mg b.i.d. 2. Aspirin 81 mg daily. 3. Flomax 0.4 mg daily. 4. Lipitor 10 mg daily. 5. Amaryl 3 mg in a.m. 6. Plendil 5 mg daily. 7. Levothyroxine 75 mcg daily. ALLERGIES: SULFA, PENICILLIN, AMOXICILLIN. FAMILY HISTORY: He reports both parents had heart disease but no other specifics. SOCIAL HISTORY: He denies any tobacco history of alcohol history. PHYSICAL EXAMINATION: VITAL SIGNS: Temp 97.9, pulse 71, blood pressure 168/72, respiratory rate 20. LUNGS: Clear to auscultation. CARDIAC: Normal. ABDOMEN: Soft. EXTREMITIES: No edema. LABORATORY DATA: White count 6, hemoglobin 13.8, platelets 147,000. Sodium 136, potassium 3.5, BUN 8, creatinine 0.6. Troponins have been negative x3. ProBNP was 156. ECG demonstrated sinus rhythm at a rate of 86 beats per minute with no significant ST-T changes. Echocardiogram performed on 03/05/2019 at [facility] demonstrated normal ejection fraction with mild mitral annular calcification. There was no other significant structural abnormality. IMPRESSION AND PLAN: The patient is 83 years old with atypical chest pain. His troponins and ECG were normal. His echocardiogram demonstrated normal ejection fraction with no significant structural abnormalities. If he has recurrence of his chest pressure, we recommend outpatient followup with Cardiology where we can perform a Lexiscan stress Cardiolite. He is safe to be discharged for outpatient followup. SAI
== END 2019-03-05 16:30 | disposition home or self-care (01) | DRG 313 ==
LOC: ER 08:19 → MEDSURG 10:35
PROVIDERS: ADMIT Emergency Medicine; ATTEND Emergency Medicine
DX: R07.9 Chest pain, unspecified (principal); R06.00 Dyspnea, unspecified; R06.02 Shortness of breath; K21.9 Gastro-esophageal reflux disease without esophagitis; R60.0 Localized edema; I10 Essential (primary) hypertension; E11.9 Type 2 diabetes mellitus without complications; E03.9 Hypothyroidism, unspecified; M19.90 Unspecified osteoarthritis, unspecified site; E78.00 Pure hypercholesterolemia, unspecified; N40.0 Benign prostatic hyperplasia without lower urinary tract symptoms; R35.0 Frequency of micturition
CPT/HCPCS: 36416; 71046; 80053; 81001; 82948; 83880; 84484; 85025; 85610; 85730; 90686; 93005; 93010; 93306; 99223; 99285; J1650

== ENCOUNTER 2019-08-12 16:30 | Emergency (ER) | payer MEDICARE, MEDICAID ==
[2019-08-12] MEDS ORDERED: Diph,Pert(Acell),Tet Vac 0.5 ML SYR IM ONE (16:59)
--- NOTE | 2019-08-12 17:04 | Emergency Department Record ---
History of Present Illness - General Chief Complaint: Dizziness Stated Complaint: DIZINESS Time Seen by Provider: 08/12/19 16:48 Source: Patient Mode of Arrival: EMS Limitations: No limitations - History of Present Illness Initial Comments: The patient is here due to feeling dizzy today. About an hour ago he was sitting in his chair and began to feel dizzy and slid out of his chair. He did hit his L elbow on something and suffered a skin tear. The patient denies any head injury or neck pain with the sliding. He also states he has been having intermittent dizziness for some time. There has been no reported CP, SOB, CRISTINA, sweating, AP, dysuria, nausea, vomiting, or diarrhea. MD Complaint: Dizziness, Difficulty walking Onset/Timin -: Days(s) Timing: Gradual onset Description: Lightheadedness History of Same: No History of Trauma: No Improves With: Nothing Worsens With: Nothing Associated Symptoms: Denies other symptoms - Erika Coma Scale Eye Response: (4) Open spontaneously Motor Response: (6) Obeys commands Verbal Response: (5) Oriented [place] Total: 15 - Related Data Allergies Allergy/AdvReac Type Severity Reaction Status Date / Time azithromycin [From Zithromax] Allergy Unknown PT UNSURE Verified 08/12/19 17:35 OF REACTION cefaclor [From Ceclor] Allergy Unknown DIARRHEA Verified 08/12/19 17:35 doxycycline Allergy Unknown PT UNSURE Verified 08/12/19 17:35 OF REACTION amoxicillin Allergy RASH Verified 08/12/19 17:35 Penicillins Allergy RASH Verified 08/12/19 17:35 Sulfa (Sulfonamide Allergy NAUSEA AND Verified 08/12/19 17:35 Antibiotics) VOMITING Travel/Exposure Screening - Travel/Exposure Within Last 30 Days Have you traveled within the last 30 days?: No - Additonal Travel/Exposure Details Have you been exposed to anyone with a communicable illness?: No Review of Systems Constitutional: Denies: Chills, Fever, Malaise Eyes: Denies: Eye discharge ENT: Denies: Throat pain Respiratory: Denies: Cough Cardiovascular: Denies: Arrhythmia, Chest pain Endocrine: Reports: Fatigue Gastrointestinal: Denies: Nausea Genitourinary: Denies: Dysuria Musculoskeletal: Denies: Arthralgia Skin: Denies: Bruising Past Medical History - SOCIAL HISTORY Smoking Status: Never smoker Alcohol Use: None Drug Use: None - RESPIRATORY Hx Respiratory Disorders: No Hx Tuberculosis: No - CARDIOVASCULAR Hx Cardio Disorders: Yes Hx Edema: Yes Hx Hypertension: Yes - NEURO Hx Neuro Disorders: No - GI Hx GI Disorders: No Hx Wt Loss/Wt Gain: Yes Hx of Polyps: Yes (removed) - Hx Genitourinary Disorders: Yes Hx Prostate Problems: Yes - ENDOCRINE Hx Endocrine Disorders: Yes Hx Diabetes: Yes Hx Thyroid Disease: Yes - MUSCULOSKELETAL Hx Musculoskeletal Disorders: Yes Hx Arthritis: Yes - PSYCH Hx Psych Problems: No - HEMATOLOGY/ONCOLOGY Hx Hematology/Oncology Disorders: No Family Medical History Any Significant Family History?: Yes Hx Diabetes: Mother Hx Heart Disease: Father, Mother Hx HTN: Mother Physical Exam - General General Appearance: Alert, Oriented x3, Cooperative, No acute distress - Head Head exam: Atraumatic, Normocephalic, Normal inspection - Eye Eye exam: Normal appearance, PERRL - ENT Throat exam: Normal inspection. negative: Tonsillar erythema, Tonsillar exudate - Neck Neck exam: Normal inspection, Full ROM. negative: Tenderness - Respiratory Respiratory exam: Normal lung sounds bilaterally. negative: Respiratory distress - Cardiovascular Cardiovascular Exam: Regular rate, Normal rhythm, Normal heart sounds. negative: Diastolic murmur, Systolic murmur - GI/Abdominal GI/Abdominal exam: Soft, Normal bowel sounds. negative: Rebound, Rigid, Tenderness - Extremities Extremities exam: Full ROM, Normal capillary refill. negative: Normal inspection (There is a minor skin tear over the L elbow but no laceration. There also is chronic leg edema bilaterally with erythema but it is no different now.), Tenderness - Neurological Neurological exam: Alert, Normal gait, Oriented X3, Reflexes normal. negative: Abnormal gait, Altered, Motor sensory deficit Course Vital Signs 08/12/19 16:38 Temperature 98.6 F Pulse Rate 91 H Respiratory 20 Rate Blood Pressure 166/87 Pulse Ox 94 L - Reevaluation(s) Reevaluation #1: The patient is doing much better at this time. He denies any pain or dizziness. The patient now states the dizziness is a chronic problem. He is eating dinner at this time and after he is done we will get him up walking and if he has no symptoms we will discharge the patient. 08/12/19 18:14 Reevaluation #2: The patient is doing very well at this time. He is up walking with a walker normally with no ataxia or unsteadiness. The patient also has had an issue here with urinary incontinence but that is clearly not new after talking with him and has been an issue for a long time. The patient would like to go home and clearly appears stable at this time. He is instructed to continue his regular medicines and see his doctor later this week. 08/12/19 18:26 Medical Decision Making - Data Complexity MDM Data: Labs Ordered and/or Reviewed, X-Ray Ordered and/or Reviewed, EKG Ordered and/or Reviewed - Lab Data Result diagrams: 08/12/19 17:05 08/12/19 17:05 - EKG Data -: EKG Interpreted by Me EKG: No Acute Changes, Unchanged From Previous - Radiology Data Radiology results: Report reviewed (Head CT: Neg for any acute changes. Chronic Ventricular enlargement. 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 Please see your doctor later this week and return to the ER for any worsening issues. Forms: Patient Portal Access Time of Disposition: 18:29 Quality - Quality Measures Quality Measures: N/A - Blood Pressure Screening View Details: Yes Does Patient Have Any of the Following: No Blood Pressure Classification: Pre-Hypertensive BP Reading Systolic Measurement: 166 Diastolic Measurement: 87 Screening for High Blood Pressure: < Pre-Hypertensive BP, F/U Documented > [G8950] Pre-Hypertensive Follow-up Interventions: Referral to alternative/primary care provider.
[2019-08-12 17:21] LABS: URINE APPEARANCE CLEAR; URINE BILIRUBIN NEGATIVE (NEGATIVE); URINE BLOOD TRACE-L (NEGATIVE); URINE COLOR YELLOW; URINE GLUCOSE (UA) NEGATIVE (NEGATIVE); URINE KETONE NEGATIVE (NEGATIVE); URINE LEUKOCYTE ESTERASE NEGATIVE (NEGATIVE); URINE NITRITE NEGATIVE (NEGATIVE); URINE UROBILINOGEN 0.2 E.U./dL (0.20 - 1.00)
[2019-08-12 17:23] LABS: HEMATOCRIT 36.9 % (42.0-52.0); HEMOGLOBIN 12.9 gm/dl (14.0-18.0); MEAN CELL VOLUME 103.4 fl (81-97); MEAN CORPUSCULAR HEMOGLOBIN 36.1 pg (27-33); MEAN PLATELET VOLUME 10.5 fl (7.4-10.4); PLATELET COUNT 139 K/uL (130-400); RED BLOOD COUNT 3.57 M/uL (4.40-5.70); RED CELL DISTRIBUTION WIDTH 14.9 % (11.5-14.5); WHITE BLOOD COUNT W/O DIFF 6.4 K/uL (4.2-12.2)
[2019-08-12 17:30] LABS: URINE EPITHELIAL CELLS NONE SEEN (FEW); URINE RBC NONE SEEN (NONE SEEN); URINE WBC NONE SEEN (0-2/hpf)
[2019-08-12 17:32] LABS: BLOOD UREA NITROGEN 10 mg/dL (8-23); CREATININE 0.7 mg/dL (0.7-1.2); EST GLOMERULAR FILTRATION RATE > 60 mL/min
[2019-08-12 17:34] LABS: GLUCOSE,RANDOM 129 mg/dL (74-109)
[2019-08-12 17:35] LABS: INR 1.2; PARTIAL THROMBOPLASTIN TIME 25.5 SECONDS (24.5-39.1)
[2019-08-12] MEDS: 0.9 % SODIUM CHLORIDE 1,000 ML BAG IV ONE ×2 (17:36→18:05)
[2019-08-12 17:37] LABS: ALB/GLOB RATIO 1.3 (1.1-1.8); ALBUMIN 3.9 g/dL (4.0-5.0); ALKALINE PHOSPHATASE 92 U/L (40-129); ALT/SGPT 19 U/L (<41); AST/SGOT 30 U/L (10.0-50.0)
--- NOTE | 2019-08-12 17:50 | CT SCAN REPORT ---
EXAMINATION: HEAD WO CONTRAST EXAM DATE: 08/12/2019 5:35 PM TECHNIQUE: Noncontrast axial images were obtained to the brain. INDICATION: dizziness with fall. COMPARISON: 11/26/2018 ENCOUNTER: Not applicable. HAND DOMINANCE: Unknown FINDINGS: Low-attenuation areas in the periventricular and subcortical white matter. The brain parenchyma is o therwise unremarkable. No loss of barber-white matter differentiation or sulcal effacement to indicate acute infarction. No evidence of intracranial mass. There is enlargement of the ventricles, sulci, and subarachnoid spaces. Enlargement of the ventricles is somewhat greater than expected relative to enlargement of the sulci There is arterial calcification. No intra-axial or extra-axial fluid collection. No evidence of intracranial hemorrhage. The paranasal sinuses, mastoid air cells, and orbits are unremarkable. The calvarium is intact. IMPRESSION: 1. No CT evidence of intracranial hemorrhage or acute intracranial abnormality. 2. Extensive white matter hypoattenuation most commonly represents chronic microvascular ischemic d isease. 3. Stable moderate ventricular enlargement is greater than expected for the enlargement of the sulci and subarachnoid spaces. This most commonly represents central greater than peripheral atrophy, but consider normal pressure hydrocephalus in the correct clinical context. Dictated by: ADELAIDE PATRICK MD on 08/12/2019 5:47 PM. .
== END 2019-08-12 18:50 | disposition home or self-care (01) ==
LOC: ER 16:30
DX: S50.312A Abrasion of left elbow, initial encounter (principal); R42 Dizziness and giddiness; R26.2 Difficulty in walking, not elsewhere classified; R32 Unspecified urinary incontinence; I10 Essential (primary) hypertension; E11.9 Type 2 diabetes mellitus without complications; W07.XXXA Fall from chair, initial encounter; Y92.009 Unspecified place in unspecified non-institutional (private) residence as the place of occurrence of the external cause
CPT/HCPCS: 70450; 80053; 81001; 84484; 85027; 85610; 85730; 90715; 93005; 93010; 96372; 99284; J7030